=== PATIENT | female | born 1980 | race Caucasian/White ===

== ENCOUNTER → 2021-12-12 | Outpatient (CLI) | payer OTHER ==
[2021-12-12 19:54] LABS: BASOPHILS ABSOLUTE AUTO 0.03 K/mm3 (0.00-0.23); BASOPHILS PERCENT AUTO 1 % (0-2); EOSINOPHILS ABSOLUTE AUTO 0.11 K/mm3 (0.00-0.68); EOSINOPHILS PERCENT AUTO 2 % (0-6); Hemoglobin 12.1 g/dL (11.5-16.0); IMMATURE GRAN ABSOLUTE AUTO 0.01 K/mm3 (0.00-0.10); IMMATURE GRAN PERCENT AUTO 0 % (0-1); LYMPHOCYTES ABSOLUTE AUTO 2.06 K/mm3 (0.84-5.20); LYMPHOCYTES PERCENT AUTO 36 % (21-46); MONOCYTES ABSOLUTE AUTO 0.39 K/mm3 (0.16-1.47); MONOCYTES PERCENT AUTO 7 % (4-13); Mean Corpuscular HGB 29.4 pg (26.0-34.0); Mean Corpuscular HGB Conc 32.7 g/dL (31.5-36.5); Mean Corpuscular Volume 90 fL (80-100); Mean Platelet Volume 11.2 fL (9.1-12.4); NEUTROPHILS ABSOLUTE AUTO 3.18 K/mm3 (1.96-9.15); NEUTROPHILS PERCENT AUTO 55 % (41-73); Platelet Count 253 K/mm3 (150-400); RDW Coefficient Variation 12.9 % (11.7-14.2); RDW Standard Deviation 42.3 fL (35.1-46.3); Red Blood Cell Count 4.11 M/mm3 (3.80-5.20); White Blood Cell Count 5.78 K/mm3 (4.00-11.30)
[2021-12-12 20:17] LABS: International Normalized Ratio 0.96; Prothrombin Time Results 10.1 Sec (9.7-11.5)
== END | disposition home or self-care (01) ==
LOC: LAB SHORT 19:27 → LAB 19:27
PROVIDERS: Family Medicine
DX: E06.3 Autoimmune thyroiditis (principal)
CPT/HCPCS: 85025; 85610

== ENCOUNTER 2022-05-27 10:39 | Day surgery (SDC) | payer OTHER ==
[~2022-05-27] VITALS: Ht 160 cm; Wt 101.5 kg
--- NOTE | 2022-05-27 15:54 | NUR ---
05/27/22 1554 Nai Richardson PT WHEN VOMITED, VOMITED 50MLS OF CLEAR YELLOWISH COLOED THISHIS LIQUID. PT DIS GET UP AND WET TO THE RESTROOM TO VOID BEFORE GOING HOME.
== END 2022-05-27 15:25 | disposition home or self-care (01) ==
LOC: ORSCSDS 10:39
PROVIDERS: Otolaryngology
PROC: 0GTH0ZZ Resection of Right Thyroid Gland Lobe, Open Approach (ICD-10-PCS; principal; 2022-05-27 12:30)
DX: E04.1 Nontoxic single thyroid nodule (principal); R13.14 Dysphagia, pharyngoesophageal phase; E06.3 Autoimmune thyroiditis; Z87.891 Personal history of nicotine dependence; E66.9 Obesity, unspecified; Z68.39 Body mass index [BMI] 39.0-39.9, adult
CPT/HCPCS: 88307; A9270; J1100; J1885; J2250; J2405; J2550; J2704; J3010

== ENCOUNTER → 2022-08-06 | Outpatient (CLI) | payer OTHER ==
[2022-08-06 21:24] LABS: Free Thyroxine 0.68 ng/dL (0.70-1.60)
[2022-08-06 21:27] LABS: Bun/Creatinine Ratio 19.7 (12.0-20.0); Calcium, Blood 8.8 mg/dL (8.5-10.1); Creatinine, Blood 0.66 mg/dL (0.40-1.00); Potassium, Blood 4.2 mmol/L (3.5-5.5); Thyroid Stimulating Hormone 6.16 uIU/mL (0.360-4.800); Triiodothyronine, Free 2.01 pg/mL (2.18-3.98)
== END | disposition home or self-care (01) ==
LOC: LAB SHORT 11:00 → LAB 11:00
PROVIDERS: Family Medicine
DX: E89.0 Postprocedural hypothyroidism (principal); Z90.89 Acquired absence of other organs
CPT/HCPCS: 80048; 82306; 83970; 84439; 84443; 84481

== ENCOUNTER → 2023-06-11 | Outpatient (CLI) | payer OTHER | LOC: LAB SHORT 13:28 → LAB 13:28 | DX: E03.9 Hypothyroidism, unspecified (principal) | CPT/HCPCS: 84443 ==